=== PATIENT | female | born 1965 | race Caucasian/White ===

== ENCOUNTER 2022-03-21 23:09 | Outpatient (CLI) | payer OTHER, SELFPAY ==
--- NOTE | 2022-04-04 12:47 | W.PM.SLEEP ---
Sleep Study Details Details Interpreting Provider: Donald Douglass MD Date of Sleep Study: 03/21/22 Sleep Study Details: STUDY TYPE:? Home ? BMI:? 34.1 ORDERING PROVIDER:? Jayson INDICATION:? Concerns about sleep apnea ? SLEEP SUMMARY:? 488 minutes monitored RESPIRATORY SUMMARY:? Central apnea index 11.3, AHI 49.9, supine AHI 55.9, left lateral 29.8, right lateral 37.5 Low oxygen 81 4.1% of study oxygen less than 90% Snoring 34.7% PERIODIC LIMB MOVEMENTS OF SLEEP:? Not recorded CARDIAC:? 47-96, mean 64.6 IMPRESSION:? Severe obstructive versus mixed sleep apnea with some supine position dependency. The central apnea index was 11.3 RECOMMENDATION: In-lab titration study
== END 2022-03-21 23:10 | disposition home or self-care (01) ==
LOC: SLEEP 23:09
PROVIDERS: PCP Physician Assistant Medical; Visit Provider Physician Assistant Medical
DX: G47.33 Obstructive sleep apnea (adult) (pediatric) (principal)
CPT/HCPCS: 95806

== ENCOUNTER 2022-04-24 14:43 | Outpatient (CLI) | payer OTHER, SELFPAY | END 2022-04-24 14:44 | disposition home or self-care (01) | LOC: RAD 14:44 | PROVIDERS: PCP Physician Assistant Medical; Visit Provider Physician Assistant Medical | DX: G47.33 Obstructive sleep apnea (adult) (pediatric) (principal) | CPT/HCPCS: 93306 ==

== ENCOUNTER 2022-08-30 20:27 | Outpatient (CLI) | payer OTHER, SELFPAY ==
--- NOTE | 2022-09-05 13:04 | W.PM.SLEEP ---
Sleep Study Details Details Interpreting Provider: Jacki Date of Sleep Study: 08/30/22 Sleep Study Details: STUDY TYPE:? Hospital CPAP titration study ? BMI:? 33 ORDERING PROVIDER:Abel Echeverria INDICATION:? Previous positive sleep study ? SLEEP SUMMARY:? Sleep time 261 minutes, efficiency 69, arousal index 27.8 RESPIRATORY SUMMARY:? Note that all dated is post treatment during CPAP titration Mean oxygen awake 95 asleep 98, minimum 87, 0.3 minutes oxygen between 80 and 88% Overall AHI for this study was 10.3 The patient was titrated 2 bilevel of 9/4 decreasing AHI to 2.9 RDI to 7. Nonsupine REM sleep stage sleep was seen at these pressures PERIODIC LIMB MOVEMENTS OF SLEEP:? None CARDIAC:? Awake 71, asleep 67. No arrhythmias noted IMPRESSION:? This is a moderately successful titration to bilevel at a pressure 9/4. This included REM stage sleep but not in the supine position. RECOMMENDATION: If the patient is willing to sleep in the nonsupine position would initiate bilevel a pressure of 9/4. Alternatively could in-situ auto bilevel range 4-15. Close follow-up is recommended
== END 2022-08-30 20:28 | disposition home or self-care (01) ==
LOC: SLEEP 20:27
PROVIDERS: PCP Physician Assistant Medical; Visit Provider Otolaryngology
DX: G47.33 Obstructive sleep apnea (adult) (pediatric) (principal)
CPT/HCPCS: 95811

== ENCOUNTER 2024-05-21 08:16 | Outpatient (CLI) | payer OTHER, SELFPAY | END 2024-05-21 08:17 | disposition home or self-care (01) | LOC: NFLDREF 05-22 10:27 | PROVIDERS: PCP Physician Assistant Medical; Referring Provider Physician Assistant Medical; Visit Provider Physician Assistant Medical | DX: R03.0 Elevated blood-pressure reading, without diagnosis of hypertension (principal); G47.33 Obstructive sleep apnea (adult) (pediatric); F41.1 Generalized anxiety disorder; R05.8 Other specified cough; Z86.39 Personal history of other endocrine, nutritional and metabolic disease | CPT/HCPCS: 80053; 80061; 82306; 84443 ==

== ENCOUNTER 2024-08-20 15:06 | Outpatient (CLI) | payer OTHER, SELFPAY ==
--- NOTE | 2024-08-20 15:20 | CRLHL7_ITS ---
For Patients: As a result of the Century Cures Act, medical imaging exams and procedure reports are released immediately into your electronic medical record. You may view this report before your referring provider. If you have questions, please contact your health care provider. BILATERAL SCREENING MAMMOGRAM WITH COMPUTER-AIDED DETECTION AND TOMOSYNTHESIS TECHNIQUE: CC and MLO views were obtained. These mammographic images have been obtained using full-field digital technique. These mammographic images were interpreted with the benefit of computer-aided detection. Breast Tomosynthesis was used in this interpretation. COMPARISON FILM: 02/16/23, 02/06/22, 01/05/21. FINDINGS: There are scattered areas of fibroglandular density. IMPRESSION: There is no radiographic evidence for malignancy. ASSESSMENT: BI-RADS Category 1: Negative RECOMMENDATION: Routine screening mammogram in 1 year. A lay language report of this examination will be provided to the patient. Ford Adkins M.D. Diagnostic Radiologist [email or web address] SP/Dictated by: Ford Adkins MD @ 08/21/2024 8:32:00 AM (Electronically Signed)
== END 2024-08-20 15:07 | disposition home or self-care (01) ==
LOC: MAMMO 15:07
PROVIDERS: PCP Physician Assistant Medical; Visit Provider Physician Assistant Medical
DX: Z12.31 Encounter for screening mammogram for malignant neoplasm of breast (principal)
CPT/HCPCS: 77063; 77067

== ENCOUNTER 2025-03-11 09:37 | Outpatient (CLI) | payer OTHER, SELFPAY | END 2025-03-11 09:38 | disposition home or self-care (01) | LOC: NFLDREF 03-13 14:30 | PROVIDERS: PCP Physician Assistant Medical; Referring Provider Physician Assistant Medical; Visit Provider Physician Assistant Medical | DX: Z00.00 Encounter for general adult medical examination without abnormal findings (principal); L65.9 Nonscarring hair loss, unspecified; E11.9 Type 2 diabetes mellitus without complications; F41.1 Generalized anxiety disorder; H10.32 Unspecified acute conjunctivitis, left eye; G47.33 Obstructive sleep apnea (adult) (pediatric); R03.0 Elevated blood-pressure reading, without diagnosis of hypertension | CPT/HCPCS: 80053; 80061; 82043; 82570; 84443 ==